=== PATIENT | male | born 1970 | race Caucasian/White ===

== ENCOUNTER → 2017-08-06 11:30 | Outpatient (CLI) | payer BC ==
[2014-11-06 06:01] VITALS: BMI 30.9
[~2017-08-06 11:30] MED LIST: HYDROCODONE-APA1 TAB PO
[2017-08-06 12:33] LABS: T4 THYROXINE 5.4 ug/dL (4.7-13.3); THYROID STIMULATING HORMONE 6.65 uIU/mL (0.36-3.74)
== END | disposition home or self-care (01) ==
LOC: D.LAB 11:30
PROVIDERS: Otolaryngology
DX: E89.0 Postprocedural hypothyroidism (principal)

== ENCOUNTER → 2017-09-03 11:22 | Outpatient (CLI) | payer BC ==
[2014-11-06 06:01] VITALS: BMI 30.9
[2017-09-03 12:36] LABS: THYROID STIMULATING HORMONE 1.27 uIU/mL (0.36-3.74)
== END | disposition home or self-care (01) ==
LOC: D.LAB 11:22
PROVIDERS: Otolaryngology
DX: E89.0 Postprocedural hypothyroidism (principal)